=== PATIENT | male | born 1945 | race Caucasian/White ===

== ENCOUNTER 2017-07-07 09:33 | Emergency (ER) | payer OTHER, BC ==
[~2017-07-07] VITALS: Ht 180.3 cm; Wt 98.5 kg
[2017-07-07 09:50] VITALS: Ht 180.3 cm; Wt 98.5 kg
[2017-07-07] MEDS ORDERED: CLINDAMYCIN 600 MG/54 ML D5W IV STA (10:26)
--- NOTE | 2017-07-07 11:00 | EMERGENCY ROOM VISIT NOTE ---
History Report prepared by Mirza: Eli Caruso Under the Supervision of: Dr. Isidoro Dempsey M.D. First contact with patient: 09:56 Chief Complaint: INFECTION Stated Complaint: CELLULITIS Nursing Triage Summary: Pt c/o right cheek/orbital cellulitis that began Tuesday, started treatment yesterday and it's getting worse. History of Present Illness The patient is a 72 year old male who presents to the Emergency Room with complaints of a worsening infection on his right cheek starting 5 days ago. The patient states that it started with a stiff neck. He states in the days after he developed chills and diaphoresis. He reports that his cousin was an ED doctor here and put him on Augmentin that he started yesterday. He reports that the infection then spread across his cheek and into his eyebrow. He notes that it is more swollen and red then before. He currently rates his pain as a 3/10 in severity. The patient denies fever, chills, changes in vision, nausea, vomiting, cough, congestion, dizziness, and headaches. The patient notes a history of hypertension and [place] the [place]. Source of History: patient Onset: 5 days ago Position: other (right cheek) Symptom Intensity: 3/10 Quality: other (swollen) Timing: worsening Associated Symptoms: No fevers, No chills, No headache, No cough, No nausea , No vomiting Note: The patient complains of worsening redness. The patient denies changes in vision , congestion, and dizziness. Review of Systems See HPI for pertinent positives and negatives. A total of ten systems were reviewed and were otherwise negative. Past Medical & Surgical Medical Problems: (1) HTN (hypertension) Family History No pertinent family history Social History Smoking Status: Never Smoker Drug Use: none Marital Status: single Housing Status: lives alone Occupation Status: employed Current/Historical Medications Scheduled Amlodipine (Norvasc), 5 MG PO DAILY Amoxicillin & Pot Clavulanate (Augmentin 875-125 mg), 1 TAB PO BID Atorvastatin (Lipitor), 20 MG PO DAILY Clindamycin Hcl (Cleocin), 300 MG PO TID Metoprolol Succinate (Toprol Xl), 50 MG PO DAILY Saccharomyces Boulardii (Florastor), 1 CAP PO BID Valsartan/Hctz (Diovan Hct 320MG/25MG), 1 TAB PO DAILY Zaleplon (Sonata), 20 MG PO HS Physical Exam Vital Signs Date Time Temp Pulse Resp B/P (MAP) Pulse Ox O2 Delivery O2 Flow Rate FiO2 07/07/17 12:55 36.7 75 18 121/73 96 Room Air 07/07/17 12:52 36.7 74 16 124/75 96 07/07/17 09:50 36.7 74 16 124/75 96 Room Air Physical Exam GENERAL: Awake, alert, well-appearing, in no distress HENT: Normocephalic, atraumatic. Oropharynx unremarkable. Erythema, warmth, eburnation on right periorbital region. EOM intact without pain. Anterior chamber clear. No foreign bodies visualized. EYES: Normal conjunctiva. Sclera non-icteric. NECK: Supple. No nuchal rigidity. FROM. No JVD. RESPIRATORY: Clear to auscultation. CARDIAC: Regular rate, normal rhythm. Extremities warm and well perfused. Pulses equal. ABDOMEN: Soft, non-distended. No tenderness to palpation. No rebound or guarding. No masses. RECTAL: Deferred. MUSCULOSKELETAL: Chest examination reveals no tenderness. The back is symmetrical on inspection without obvious abnormality. There is no CVA tenderness to palpation. No joint edema. LOWER EXTREMITIES: Calves are equal size bilaterally and non-tender. No edema. No discoloration. NEURO: Normal sensorium. No sensory or motor deficits noted. SKIN: No rash or jaundice noted. Medical Decision & Procedures Medications Administered Medications (Trade) Dose Ordered Sig/Edda Route Start Time Stop Time Status Last Admin Dose Admin Clindamycin Phosphate (Cleocin 600mg/ 54ml D5W) 600 mg NOW STAT IV 07/07/17 10:26 07/07/17 10:29 DC 07/07/17 10:53 600 MG ED Course 1008: The patient was evaluated in room A4B. A complete history and physical exam was performed. 1032: I reevaluated the patient and updated him on the plan to treat him. 1026: Ordered Clindamycin Phosphate 600 mg IV. 1217: I reevaluated the patient. Discussed results and discharge instructions: He verbalized understanding and agreement. The patient is ready for discharge. Medical Decision I reviewed the patient's past medical history, medications, and the nursing notes as described above. Differential diagnoses include preseptal cellulitis, allergic reaction, periorbital cellulitis or abscess. Patient is a 72-year-old gentleman presents to emergency department with worsening right facial swelling and redness per history of present illness. Arrival the patient is in no acute distress. Afebrile with stable vital signs. Patient has mild erythema and warmth right side of his face and periorbitally , with areas of induration but no fluctuance. No ocular involvement. EMOi without pain. Septal cellulitis not likely. Anterior chamber clear. Denies any changes in vision. Patient reports taking Augmentin for the past 24 hours with worsening in symptoms. Thus we will give IV dose of Clindamycin to help achieve therapeutic levels and will discharge on PO course. Since, well- appearing otherwise and afebrile no indication for labs at this time. Findings and plan for follow-up d/w patient. Patient agreeable and d/c'd per discharge instructions. Medication Reconcilliation Current Medication List: was personally reviewed by me Blood Pressure Screening Patient's blood pressure: Normal blood pressure Blood pressure disposition: Did not require urgent referral Impression Primary Impression: Cellulitis Scribe Attestation The scribe's documentation has been prepared under my direction and personally reviewed by me in its entirety. I confirm that the note above accurately reflects all work, treatment, procedures, and medical decision making performed by me. Departure Information Dispostion Home / Self-Care Prescriptions Saccharomyces Boulardii (Florastor) 250 Mg Cap 1 CAP PO BID for 14 Days, #28 CAP Prov: Isidoro Dempsey M.D. 07/07/17 Clindamycin Hcl (CLEOCIN) 150 Mg Cap 300 MG PO TID for 7 Days, #42 CAP Prov: Isidoro Dempsey M.D. 07/07/17 Referrals No Doctor, Assigned (PCP) Forms HOME CARE DOCUMENTATION FORM, IMPORTANT VISIT INFORMATION, WORK / SCHOOL INSTRUCTIONS Patient Instructions ED Cellulitis Facial, My [facility] Additional Instructions Please follow up with your primary care physician in the next 1-3 days for reevaluation. You have a skin infection. Otherwise, your exam did not show signs of an emergent condition at this time. Take your new antibiotic as prescribed and discontinue her current antibiotic. Probiotic as directed to help prevent antibiotic associated diarrhea. Return to the emergency department for worsening symptoms as described in the accompanying instructions.
[2017-07-07] MEDS ORDERED: VALS320T2 PO (12:17)
[2017-07-07] MEDS ORDERED: AMOX875T PO (12:17)
[2017-07-07] MEDS ORDERED: AMLO-110 PO (12:17)
[2017-07-07] MEDS ORDERED: SNT/10 PO (12:17)
[2017-07-07] MEDS ORDERED: METO-217 PO (12:17)
[2017-07-07] MEDS ORDERED: ATOR-22 PO (12:17)
[2017-07-07] MEDS ORDERED: SACC250C3 PO (12:21)
[2017-07-07] MEDS ORDERED: CLIN150C PO (12:21)
[2017-07-07 12:55] VITALS: BP 121/73; PULSE 75; TEMP 36.7; O2SAT 96
== END 2017-07-07 12:52 | disposition home or self-care (01) ==
LOC: C.EDB 09:35 → C.EDA 12:52
DX: L03.211 Cellulitis of face (principal); I10 Essential (primary) hypertension